=== PATIENT | male | born 2000 | race Caucasian/White ===

== ENCOUNTER 2024-01-04 12:57 | Emergency (ER) | payer BC, SELFPAY ==
[2024-01-04 13:02] VITALS: BP 131/78; PULSE 94; RESP 17; TEMP 36.7; O2SAT 97; BMI 30.5
--- NOTE | 2024-01-04 13:13 | USR_ITS ---
PROCEDURE INFORMATION: Exam: US Right Limited Joint or Other Non-Vascular Extremity Structure Exam date and time: 01/04/2024 2:39 PM Age: 23 years old Clinical indication: Mass right thigh. TECHNIQUE: Imaging protocol: US right limited joint or other nonvascular extremity structure. Real-time ultrasound with image documentation. COMPARISON: No relevant prior studies available. FINDINGS: Soft tissues: Unremarkable. No loculated collections. Other findings: There is an ovoid solid lesion in the soft tissues of the right thigh measuring 3.2 x 1.9 x 3.1 cm with prominent internal vascularity. US/US soft tissue/extremity 53258 IMPRESSION: 3.2 cm nonspecific ovoid solid lesion in the soft tissues of the right thigh with internal vascularity.
--- NOTE | 2024-01-04 13:32 | ED_ITS ---
HPI - General Adult 2 General: Chief complaint: General Medical Stated complaint: clinic sent right side groin knot Time Seen by Provider: 01/04/24 13:00 History of Present Illness: 23-year-old man with no past medical his tory who presents emergency room with a swelling in his right proximal thigh. He had gone to urgent care and they sent him to the emergency room. He just noticed it. It is not very painful. No fevers. No abdominal pain. No chest pain. No pain with walking. Related Data Previous Rx's Medication Instructions Recorded hydrocortisone acetate 0.5 % 1 applic topical BID PRN skin 08/21/23 topical cream irritation #28.4 grams Allergies Allergy/AdvReac Type Severity Reaction Status Date / Time No Known Allergies Allergy Verified 01/04/24 13:05 Review of Systems 2 Narrative: Constitutional symptoms: Negative except as documented in HPI. Skin symptoms: Negative except as documented in HPI. Eye symptoms: Negative except as documented in HPI. ENMT symptoms: Negative except as documented in HPI. Respiratory symptoms: Negative except as documented in HPI. Cardiovascular symptoms: Negative except as documented in HPI. Gastrointestinal symptoms: Negative except as documented in HPI. Genitourinary symptoms: Negative except as documented in HPI. Musculoskeletal symptoms: Negative except as documented in HPI. Neurologic symptoms: Negative except as documented in HPI. Psychiatric symptoms: Negative except as documented in HPI. Endocrine symptoms: Negative except as documented in HPI. PFSH ED 2 PFSH: Social History Smoking and tobacco/nicotine status: unknown if used tobacco/nicotine Alcohol intake: current Alcohol intake frequency: holidays/special occasions only Substance/Drug Use: never Adopted: No service: No Current occupational exposures/hazards: No Current gender identity: Male Physical Exam 2 Narrative: EXAM NARRATIVE: General: Alert, no acute distress. Skin: Warm, dry. Head: Normocephalic, atraumatic. Neck: Supple, trachea midline. Eye: Extraocular movements are intact. Ears, nose, mouth and throat: mucosa moist. Cardiovascular: Regular, Normal peripheral perfusion. Respiratory: Lungs are clear to auscultation, respirations are non-labored, breath sounds are equal, Symmetrical chest wall expansion. Gastrointestinal: Soft, Nontender, Non distended Musculoskeletal: Normal ROM, no deformity. There is a swelling in the right proximal medial thigh. No redness. No warmth. It is relatively nontender. Neurological: Alert and oriented, No focal neurological deficit observed. Psychiatric: Cooperative, appropriate mood & affect. Course 2 Vital Signs: Vital signs: Vital Signs Temperature 98.1 F 01/04/24 13:02 Pulse Rate 94 01/04/24 13:02 Respiratory Rate 17 01/04/24 13:02 Blood Pressure 131/78 01/04/24 13:02 Pulse Oximetry 97 01/04/24 13:02 Oxygen Delivery Me thod Room Air 01/04/24 13:02 MDM - General Adult Medical Decision Making Ultrasound of the lesion was performed: This shows a ovoid 3.2 cm solid lesion that has internal vascularity. This could be a lymph node but also could be a solid tumor. Consult: I spoke with Dr. Velazquez with general surgery. He wants to see the patient in the clinic on Saturday. I discussed with the patient to call at 8 AM for an appointment that day. We are providing him with a work note for that day. Reexamination: Patient remained stable. No increased work of breathing. No altered mental status. No focal motor deficits. Lab review: I have reviewed and interpreted lab work personally. No lab abnormalities. No leukocytosis. No anemia. No platelet abnormalities. No renal failure. Glucose is normal. Assessment and plan: Solid mass of the right thigh - Discharged home - Discussed findings and plan with patient. Answered any questions. - All laboratory values were reviewed and interpreted personally by myself, the ER physician - All imaging was reviewed and interpreted personally by myself, the ER physician. - Evaluation and treatment of this problem were appropriate in the emergency setting Lab Data 01/04/24 13:30 01/04/24 13:30 Radiology Impressions Soft Tissue Ultrasound 01/04/24 13:13 IMPRESSION: 3.2 cm nonspecific ovoid solid lesion in the soft tissues of the right thigh with internal vascularity. Laboratory Results WBC 7.35 10^3/uL (3.29-11.43) 01/04/24 13:30 RBC 4.66 10^6/uL (3.85-5.65) 01/04/24 13:30 Hgb 14.90 g/dL (11.27-16.99) 01/04/24 13:30 Hct 43.6 % (37-53) 01/04/24 13:30 MCV 93.6 fl (82-101) 01/04/24 13:30 MCH 32.0 pg (27-33) 01/04/24 13:30 MCHC 34.2 g/dL (30-55) 01/04/24 13:30 RDW 11.8 % (12.1-15.1) L 01/04/24 13:30 Plt Count 325 10^3/cmm (157-399) 01/04/24 13:30 MPV 8.6 fL (7.4-10.4) 01/04/24 13:30 Neut % (Auto) 62.3 % 01/04/24 13:30 Lymph % (Auto) 22.4 % 01/04/24 13:30 Sharkey % (Auto) 13.1 % 01/04/24 13:30 Eos % (Auto) 1.4 % 01/04/24 13:30 Baso % (Auto) 0.4 % 01/04/24 13:30 Neut # (Auto) 4.58 10^3/uL (1.8-7.7) 01/04/24 13:30 Lymph # (Auto) 1.7 10^3/uL (0.8-4.8) 01/04/24 13:30 Sharkey # (Auto) 1.0 10^3/uL (0.2-0.9) H 01/04/24 13:30 Eos # (Auto) 0.1 10^3/uL (0.0-0.8) 01/04/24 13:30 Baso # (Auto) 0.0 10^3/uL (0.0-0.1) 01/04/24 13:30 Nucleated RBC % (auto) 0 % 01/04/24 13:30 Nucleated RBCs # 0.0 /100WBC 01/04/24 13:30 Sodium 137 mmol/L (136-145) 01/04/24 13:30 Potassium 3.9 mmol/L (3.5-5.1) 01/04/24 13:30 Chloride 102 mmol/L (98-107) 01/04/24 13:30 Carbon Dioxide 25 mmol/L (22-29) 01/04/24 13:30 Anion Gap 13.9 (5-19) 01/04/24 13:30 BUN 17 mg/dL (6-20) 01/04/24 13:30 Creatinine 0.9 mg/dL (0.7-1.2) 01/04/24 13:30 GFR Calculation 106.5 mL/min (90-130) 01/04/24 13:30 Glucose 97 mg/dL (65-115) 01/04/24 13:30 Calculated Osmolality 285 mOsm/kg (285-295) 01/04/24 13:30 Calcium 8.7 mg/dL (8.5-10.5) 01/04/24 13:30 Total Bilirubin 0.4 mg/dL (0.15-1.2) 01/04/24 13:30 AST 19 U/L (0-40) 01/04/24 13:30 ALT 22 U/L (0-41) 01/04/24 13:30 Alkaline Phosphatase 76 U/L (40-130) 01/04/24 13:30 C-Reactive Protein 19.7 mg/L (0.0-4.9) H 01/04/24 13:30 Total Protein 6.9 g/dL (6.6-8.7) 01/04/24 13:30 Albumin 4.2 g/dL (3.5-5.2) 01/04/24 13:30 Globulin 2.7 g/dL (1.3-4.6) 01/04/24 13:30 All radiology interpretation(s) finalized by discharge Discharge Plan Discharge Patient Disposition: Home Clinical Impression: Palpable mass of soft tissue of thigh Condition: Stable Prescriptions: No Action hydrocortisone acetate 0.5 % cream 1 applic topical BID PRN (Reason: skin irritation) Qty: 28.4 0RF Rx Instructions: apply twice daily x 7 days max for FACE Discharge Orders: Discharge ED (Routine); Ordered 01/04/24 Ordered By: Angeles Cyr Referrals: Doug Velazquez DO [Physician] - 01/06/24 8:00 am (Call the clinic at 8 AM on Saturday. Make sure you tell staff that Dr. Velazquez wants to see you on Saturday.) Zay Crandall MD [Primary Care Provider] - Discharge Diet: Usual diet Discharge Activity: Resume usual activity Patient Instructions: Soft Tissue Mass (ED) Activity Restrictions/Additional Instructions: Thank you for choosing [facility] for your healthcare needs today. Please realize this is an emergency room and that we are providing you with a medical screening exam and this may not be complete and all inclusive of all the testing and or work up that you may need to determine your ailment or severity of your illness. You have been screened and evaluated and felt safe for discharge. Health conditions do change or evolve sometimes and as such it is important that you follow up with your Primary Doctor to be re checked, 3-5 days is a general good time frame for follow up. You are always welcome to return to the ED for re assessment if your symptoms are worsening or you have new concerns Coding Level of Care Code ED Manager [employer] for Juan Maddox
[2024-01-04 13:34] LABS: Basophils % 0.4 %; Eosinophils # 0.1 10^3/uL (0.0-0.8); Eosinophils % 1.4 %; Hematocrit 43.6 % (37-53); Lymphocytes # 1.7 10^3/uL (0.8-4.8); Lymphocytes % 22.4 %; Mean Corpuscular HGB Conc 34.2 g/dL (30-55); Mean Corpuscular Volume 93.6 fl (82-101); Mean Platelet Volume 8.6 fL (7.4-10.4); Monocytes % 13.1 %; Neutrophils # 4.58 10^3/uL (1.8-7.7); Neutrophils % 62.3 %; Nucleated Red Blood Cells % 0 %; Platelet Count 325 10^3/cmm (157-399); Red Blood Count 4.66 10^6/uL (3.85-5.65); Red Cell Distribution Width 11.8 % (12.1-15.1); White Blood Count 7.35 10^3/uL (3.29-11.43)
[2024-01-04 13:51] LABS: Alanine Aminotransferase 22 U/L (0-41); Albumin Level 4.2 g/dL (3.5-5.2); Alkaline Phosphatase 76 U/L (40-130); Anion Gap 13.9 (5-19); Aspartate Amino Transferase 19 U/L (0-40); Blood Urea Nitrogen 17 mg/dL (6-20); C Reactive Protein 19.7 mg/L (0.0-4.9); Calcium 8.7 mg/dL (8.5-10.5); Carbon Dioxide 25 mmol/L (22-29); Chloride 102 mmol/L (98-107); Creatinine Clr Calc Pharmacy 146.8724; Globulin 2.7 g/dL (1.3-4.6); Glomerular Filtration Rate 106.5 mL/min (90-130); Glucose 97 mg/dL (65-115); Osmolality Calculated 285 mOsm/kg (285-295); Potassium 3.9 mmol/L (3.5-5.1); Sodium 137 mmol/L (136-145); Total Bilirubin 0.4 mg/dL (0.15-1.2); Total Protein 6.9 g/dL (6.6-8.7)
[2024-01-04 15:42] VITALS: BP 126/72; PULSE 103; RESP 16; O2SAT 97
== END 2024-01-04 15:41 | disposition home or self-care (01) ==
PROVIDERS: Emergency Provider Emergency Medicine; PCP Family Medicine
DX: R22.41 Localized swelling, mass and lump, right lower limb (principal)
CPT/HCPCS: 36415; 76882; 80053; 85025; 86140; 99284

== ENCOUNTER 2024-01-14 10:29 | Day surgery (SDC) | payer BC, SELFPAY ==
[2024-01-14] VITALS (12 sets, daily range): BP systolic 107–125; BP diastolic 50–80; PULSE 60–116; RESP 15–18; TEMP 36.1–36.5; O2SAT 94–100; BMI 29.9
[2024-01-14] MEDS: sodium chloride 0.9% 1,000 ML 30 ML IV (11:01)
--- NOTE | 2024-01-14 11:55 | W.PM.OPSUD ---
Surgery/Procedure H&P Update DATE OF PROCEDURE: January 14, 2024 DATE H&P PERFORMED: 01/06/24 H&P UPDATE INFORMATION: I have reviewed H&P completed within last 30 days, I have examined patient prior to procedure and No changes to prior documentation PLANNED PROCEDURE: Operation Date: 01/14/24 12:00 Proposed Procedures p Excision of subcutaneous left back mass 91567, 60407, M79.89, D17.1(Left) - Doug Velazquez DO s Excision Of Pelvic/Groin Mass/Lesion/Cys(Right) - Doug Velazquez DO
--- NOTE | 2024-01-14 11:57 | P.ANESASSM_ITS ---
Pre-Anesthetic Assessment Height/Weight: Height 5 ft 9 in Weight 203 lb Temp Pulse Resp BP Pulse Ox O2 Del Method 97.7 F 116 H 18 125/80 96 Room Air 01/14/24 10:46 01/14/24 10:46 01/14/24 10:46 01/14/24 10:46 01/14/24 10:46 01/14/24 10:46 Preop Diagnosis: Lipoma Operation Date: 01/14/24 12:00 Proposed Procedures p Excision of subcutaneous left back mass 49787, 42407, M79.89, D17.1(Left) - Doug Velazquez DO s Excision Of Pelvic/Groin Mass/Lesion/Cys(Right) - Doug Velazquez DO Was Beta Eagle taken within 24 hours: N/A Was Clonidine taken within 24 hours: N/A Last intake: Intake Last Liquid Date 01/13/24 Last Liquid Time 02:20 Last Solid Date 01/13/24 Last Solid Time 22:00 Social No alcohol and No tobacco Exam alert, oriented x 3, clear to auscultation bilaterally and regular rate & rhythm Airway Submandibular: within normal limits Cervical ROM: within normal limits Mallampati: Class II Dentition: full Anesthetic Plan ASA status: 1 Anesthesia: Choice Other: No prior issues with anesthesia NPO since midnight Denies any cardiac or pulmonary issues METs greater than 4 Plan for general anesthesia with LMA/ETT Medications/Allergies Home Medications Medication Instructions Recorded Confirmed Last Taken Type hydrocodone 5 mg-acetaminophen 325 1 tab PO Q4H PRN pain 5 days #20 01/04/24 0 01/13/24 Unknown Rx mg tablet tabs Allergies Allergy/AdvReac Type Severity Reaction Status Date / Time No Known Allergies Allergy Verified 01/06/24 08:19 Current Medications Generic Name Dose Route Start Last Admin Trade Name Freq PRN Reason Stop Dose Admin Sodium Chloride 1,000 mls @ 30 mls/hr 01/14/24 10:45 01/14/24 11:01 Sodium Chloride 0.9% IV 01/15/24 10:44 30 mls/hr .Q24H DANA Administration PFSH Anesthesia Social History Smoking and tobacco/nicotine status: never used tobacco/nicotine Alcohol intake: current Alcohol intake frequency: holidays/special occasions only Substance/Drug Use: never Adopted: No service: No Current occupational exposures/hazards: No Current gender identity: Male Data Anesthesia Cardiac Studies: No Data to Display
[2024-01-14] MEDS: ceFAZolin 2,000 mg SDV 2000 MG IVP (13:20)
[2024-01-14] MEDS: lidocaine-epi 2% PF 1:200,000 20 mL SDV XX (14:18)
--- NOTE | 2024-01-14 14:46 | P.OP_ITS ---
Operative Report Date of procedure: January 14, 2024 Pre-op diagnosis: Subcutaneous mass of back Subcutaneous mass of right arm Right inguinal lymphadenopathy Post-op diagnosis: same Procedure done: Excision of subcutaneous mass of the back 2.8 cm Excision of subcutaneous mass of right arm 1.5 cm Excision of right inguinal lymph node 7.5 cm Implants: None Specimens removed/disposition: Excision of subcutaneous mass of the back 2.8 cm Excision of subcutaneous mass of right arm 1.5 cm Excision of right inguinal lymph node 7.5 cm Surgeon: Doug Velazquez DO Anesthesia: General and Local Estimated blood loss (mL): 5 Complications: None apparent Brief History: This is a very pleasant 23-year-old gentleman who presented to my office with just over a week of growing mass in his right groin along with a 10 pound weight loss and unexplained sweating. For several years he has had painful enlarging subcutaneous masses of his back and right arm. Excisions were indicated. The risks and benefits were explained and documented. Procedure: Patient was wheeled operative room placed on the OR table in the supine position. General endotracheal intubation was achieved by the part of anesthesia. Patient was then placed into the right lateral decubitus position. The back was inspected prepped and draped in usual sterile fashion. A timeout was performed. All present were in agreement. 2% lidocaine with epinephrine was used to anesthetize the skin overlying the subcutaneous mass on his left lower back. A 15 blade scalpel was used to make a 2 cm transverse incision. Electrocautery was used dissect down to a lobulated yellow fatty tumor which was removed totally. Mass measured 2.5 cm in greatest diameter. Hemostasis was achieved with electrocautery. Dermis was approximated with 3-0 Vicryl suture in an interrupted fashion. Skin was closed with a running 4-0 Monocryl in a subcuticular fashion. Dermabond was applied. Patient was then put into the supine position. Attention was brought to the right arm which was inspected prepped and draped in usual sterile fashion. 2% lidocaine with epinephrine was used to anesthetize the skin overlying a mobile subcutaneous mass. A 15 blade scalpel was used to make a 2 cm transverse incision. Electrocautery was used dissect down to a yellow lobulated fatty mass which was removed locally. Mass measured 1.5 cm in greatest diameter. Hemostasis was achieved electrocautery. Dermis was approximated with 3-0 Vicryl in an interrupted fashion. Skin was closed with 4- 0 Monocryl in a running subcuticular fashion. Dermabond was applied. Attention was then brought to the right groin. Right groin was inspected prepped and draped in usual sterile fashion. 2% lidocaine with epinephrine is used to anesthetize the skin overlying a large right inguinal lymph node. An oblique incision was made with a 10 blade scalpel for distance of 7.5 cm. Dermis was incised with electrocautery on cut mode. Bovie cautery was used to dissect down through subcutaneous tissue until I encountered a very large irregular and somewhat necrotic lymph node. There were large vessels supplying this lymph node which were doubly clipped with a medium clip reimbursement liaison and ligated. The lymph node was shelled out. There was significantly indurated tissue along with mass extensions going in many directions. These were all carved out as best as I could. Mass, which appeared to be a very large and partially necrotic node, was sent to pathology fresh lymph node protocol. Hemostasis was achieved electrocautery. Dermis approximated with 3-0 Vicryl in an interrupted fashion. Skin was closed with 4- 0 Monocryl in a running subcuticular fashion. Dermabond was applied. Patient tolerated procedure well.
[2024-01-14] MEDS: HYDROcodone-acetaminophen 7.5-325 mg Tablet 1 TAB PO (16:17)
[2024-01-17 07:51] LABS: Lymphoma Profile (BBPL) See Report
== END 2024-01-14 16:53 | disposition home or self-care (01) ==
PROVIDERS: PCP Family Medicine; Visit Provider Surgery
PROC: (CPT 11402; principal; 2024-01-14 12:00)
PROC: (CPT 11402; 2024-01-14 12:00)
DX: D17.1 Benign lipomatous neoplasm of skin and subcutaneous tissue of trunk (principal); D17.21 Benign lipomatous neoplasm of skin and subcutaneous tissue of right arm; R59.1 Generalized enlarged lymph nodes
CPT/HCPCS: 11402; 11403; 12032; 38531; 88184; 88185; 88304; 88307; 88313; J0690; J1100; J2250; J2405; J3010; J7030

== ENCOUNTER 2024-10-07 17:00 | Outpatient (CLI) | payer BC, SELFPAY | END 2024-10-07 17:01 | disposition home or self-care (01) | LOC: RAD 17:01 | PROVIDERS: PCP Family Medicine; Visit Provider Family Medicine | DX: N50.3 Cyst of epididymis (principal) | CPT/HCPCS: 76870 ==